=== PATIENT | female | born 1955 | race Caucasian/White ===

== ENCOUNTER 2021-01-12 11:13 | Emergency (ER) | payer BC ==
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
[2021-01-12] MEDS ORDERED: Albuterol/Ipratropium 3.0-0.5 MG/3 ML Neb Soln NEB STA (11:56)
[2021-01-12] MEDS ORDERED: Azithromycin 500 MG Tab PO ONE (11:56)
[2021-01-12] MEDS ORDERED: predniSONE 20 MG Tab PO ONE (11:57)
== END 2021-01-12 12:10 | disposition home or self-care (01) ==
LOC: LB.ED 11:13
DX: J20.9 Acute bronchitis, unspecified (principal); J21.9 Acute bronchiolitis, unspecified; Z88.5 Allergy status to narcotic agent; Z88.2 Allergy status to sulfonamides; Z79.899 Other long term (current) drug therapy; Z20.822 Contact with and (suspected) exposure to COVID-19
CPT/HCPCS: 87635; 99285; A9270; J7512; J7620-GY; U0002